=== PATIENT | female | born 1970 | race Caucasian/White ===

== ENCOUNTER 2018-09-18 18:08 | Emergency (ER) | payer MEDICARE ==
[~2018-09-18] VITALS: Ht 167.6 cm; Wt 96.0 kg
--- NOTE | 2018-09-18 18:29 | NUR ---
PT ARRIVED TO ROOM 25 VIA WHEELCHAIR WITH TECH. PT DRESSED IN GOWN AND ATTACHED TO MONITOR. PT C/O FLANK PAIN AND "BLADDER PAIN, IT HURTS MORE WHEN I PEE. IT MAKES ME NAUSEOUS." PT AAO X 4, VSS, NAD, ROOM AIR. RESTING ON GURNEY, CALL LIGHT WITHIN REACH, FALL PRECAUTIONS IN PLACE.
[2018-09-18] MEDS ORDERED: GABA100C PO (18:34)
[2018-09-18] MEDS ORDERED: TRAZ50TA66 PO (18:34)
[2018-09-18] MEDS ORDERED: CARV3.1212 PO (18:34)
[2018-09-18] MEDS ORDERED: LEVO25TA2 PO (18:43)
[2018-09-18] MEDS ORDERED: LISI2.5T PO (18:43)
--- NOTE | 2018-09-18 18:52 | NUR ---
PIV ESTABLISHED BY PUJA BRAGA. PT AMBULATED TO RESTROOM FOR UA WITH STEADY GAIT.
[2018-09-18] MEDS ORDERED: METOCLOPRAMIDE 5 MG/ML, 2ML ONE (18:54)
[2018-09-18] MEDS ORDERED: HYDROmorphone 2 MG/ML, 1ML ONE ×2 (18:54→20:17)
--- NOTE | 2018-09-18 18:54 | NUR ---
PIV PLACED, PT ASKED TO PROVIDE UA AT THIS TIME.
[2018-09-18] MEDS ORDERED: KETOROLAC 30 MG/1 ML ONE (18:55)
--- NOTE | 2018-09-18 18:57 | NUR ---
PT UA SENT TO LAB.
[2018-09-18] MEDS: HYDROmorphone 2 MG/ML, 1ML IVPush PRN ×2 (18:59→20:19)
[2018-09-18] MEDS ORDERED: KETOROLAC 30 MG/1 ML IVPush ONE (19:00)
[2018-09-18] MEDS ORDERED: METOCLOPRAMIDE 5 MG/ML, 2ML IVPush ONE (19:00)
--- NOTE | 2018-09-18 19:01 | NUR ---
PT MEDICATED PER ORDER
--- NOTE | 2018-09-18 19:02 | NUR ---
PT TO CT.
[2018-09-18 19:04] LABS: BASOPHILS # (AUTO) 0.03 x10^3/uL (0-0.1); BASOPHILS % (AUTO) 0 % (0-1); EOSINOPHILS # (AUTO) 0.11 x10^3/uL (0-0.4); EOSINOPHILS % (AUTO) 1 % (1-7); LYMPHOCYTES % (AUTO) 21 % (22-44); MD NO; MEAN CORPUSCULAR HEMOGLOBIN 29.1 pg (27.0-34.8); MEAN CORPUSCULAR HGB CONC 33.3 g/dL (32.4-35.8); MEAN CORPUSCULAR VOLUME 87.2 fL (80-100); MEAN PLATELET VOLUME 10.1 fL (7.4-10.4); MONOCYTES # (AUTO) 0.85 x10^3/uL (0.2-0.8); MONOCYTES % (AUTO) 10 % (2-9); NEUTROPHILS # (AUTO) 5.84 x10^3/uL (1.8-6.8); NEUTROPHILS % (AUTO) 68 % (42-75); PLATELET COUNT 258 x10^3/uL (130-400); RED BLOOD COUNT 5.22 x10^6/uL (3.82-5.3); RED CELL DISTRIBUTION WIDTH 14.8 % (9.6-15.2)
[2018-09-18 19:06] LABS: MICROSCOPIC AUTO
--- NOTE | 2018-09-18 19:09 | NUR ---
PT BACK FROM CT.
[2018-09-18 19:11] LABS: CULTURE INDICATED? YES
[2018-09-18 19:16] LABS: ALANINE AMINOTRANSFERASE 41 U/L (12-78); ALBUMIN 3.7 g/dL (3.4-5.0); ANION GAP 7 mmol/L (5-15); CALCIUM 8.7 mg/dL (8.5-10.1); CHLORIDE 114 mmol/L (98-107); CREATININE 0.79 mg/dL (0.55-1.02)
[2018-09-18 19:19] LABS: ALKALINE PHOSPHATASE 137 U/L (45-117); BILIRUBIN,TOTAL 0.5 mg/dL (0.2-1.0); TOTAL PROTEIN 7.4 g/dL (6.4-8.2)
--- NOTE | 2018-09-18 19:40 | NUR ---
ALL RESULTS BACK AT THIS TIME, CHART UP FOR RECHECK BY .
[2018-09-18] MEDS ORDERED: CEFTRIAXONE PMX 1GM/50ML 50 ML ONE (19:59)
[2018-09-18] MEDS ORDERED: CEFTRIAXONE PMX 1GM/50ML 50 ML IV ONE (20:00)
[2018-09-18 20:03] VITALS: BP 134/66
--- NOTE | 2018-09-18 20:20 | NUR ---
PT MEDICATED PER .
--- NOTE | 2018-09-18 21:05 | NUR ---
Patient/Caregiver given discharge instructions and they have confirmed that they understand the instructions. Patient ambulatory with steady gait.
== END 2018-09-18 21:06 | disposition home or self-care (01) ==
LOC: ED 19:14
DX: N10 Acute pyelonephritis (principal); N39.0 Urinary tract infection, site not specified; Z90.49 Acquired absence of other specified parts of digestive tract; Z90.710 Acquired absence of both cervix and uterus; Z87.891 Personal history of nicotine dependence
CPT/HCPCS: 36415; 74176; 80053; 81001; 85025; 87077; 87086; 87186; 96365; 96375; 96376; 99284; J0696; J1170; J1885; J2765

== ENCOUNTER 2018-10-02 11:40 | Inpatient (IN) | payer MEDICARE, MEDICAID ==
[~2018-10-02] VITALS: Ht 165.1 cm; Wt 99.7 kg
[~2018-10-02 11:40] MED LIST: CARV3.1212 PO; GABA100C PO; LEVO25TA2 PO; LISI2.5T PO; TRAZ50TA66 PO
[2018-10-02] MEDS ORDERED: METOCLOPRAMIDE 5 MG/ML, 2ML ONE (12:22)
[2018-10-02] MEDS ORDERED: HYDROmorphone 1 MG/ML, 1ML VIAL ONE ×2 (12:22→14:06)
[2018-10-02 12:29] LABS: MICROSCOPIC NOT IND
[2018-10-02] MEDS ORDERED: SODIUM CHLORIDE FLUSH 10ML SYR IVF ONE (12:30)
[2018-10-02] MEDS ORDERED: METOCLOPRAMIDE 5 MG/ML, 2ML IVPush ONE (12:30)
--- NOTE | 2018-10-02 12:35 | NUR ---
PT STATES SHE IS IN IMMENSE AMOUNT OF ABD PAIN, SHE HAS BEEN N/V/D SINCE WED, LAST EPISODE WAS AT 0200 TODAY. HAD A UTI 2 WKS AGO. BLD AND URINE SAMPLES SENT TO LAB, BLANKETS AND SHEET FOR PILLOW GIVEN. IV ESTABLISHED.
[2018-10-02 12:37] LABS: ALANINE AMINOTRANSFERASE 39 U/L (12-78); ALBUMIN 3.7 g/dL (3.4-5.0); ANION GAP 7 mmol/L (5-15); CALCIUM 8.8 mg/dL (8.5-10.1); CHLORIDE 110 mmol/L (98-107)
[2018-10-02 12:40] LABS: ALKALINE PHOSPHATASE 151 U/L (45-117); BILIRUBIN,TOTAL 1.1 mg/dL (0.2-1.0); CREATININE 0.74 mg/dL (0.55-1.02); TOTAL PROTEIN 7.4 g/dL (6.4-8.2)
[2018-10-02 12:43] LABS: BASOPHILS # (AUTO) 0.02 x10^3/uL (0-0.1); BASOPHILS % (AUTO) 0 % (0-1); EOSINOPHILS # (AUTO) 0.08 x10^3/uL (0-0.4); EOSINOPHILS % (AUTO) 1 % (1-7); LYMPHOCYTES # (AUTO) 1.35 x10^3/uL (1-3.4); LYMPHOCYTES % (AUTO) 13 % (22-44); MD NO; MEAN CORPUSCULAR HEMOGLOBIN 28.3 pg (27.0-34.8); MEAN CORPUSCULAR HGB CONC 32.6 g/dL (32.4-35.8); MEAN CORPUSCULAR VOLUME 86.7 fL (80-100); MEAN PLATELET VOLUME 10.3 fL (7.4-10.4); MONOCYTES # (AUTO) 0.71 x10^3/uL (0.2-0.8); MONOCYTES % (AUTO) 7 % (2-9); NEUTROPHILS % (AUTO) 79 % (42-75); PLATELET COUNT 212 x10^3/uL (130-400); RED BLOOD COUNT 5.13 x10^6/uL (3.82-5.3); RED CELL DISTRIBUTION WIDTH 14.4 % (9.6-15.2)
[2018-10-02] MEDS: HYDROmorphone 2 MG/ML, 1ML IVPush PRN ×4 (12:44→23:02)
[2018-10-02 12:55] LABS: CULTURE INDICATED? NO
--- NOTE | 2018-10-02 13:57 | NUR ---
PT IN CT SCAN
[2018-10-02] MEDS ORDERED: OMNIPAQUE 350 MG/ML, 100ML BOTTLE ONE (14:04)
--- NOTE | 2018-10-02 14:04 | NUR ---
PT RETURNED TO ROOM, 2 WARM BLANKETS GIVEN TO PT. CALL LIGHT WITHIN REACH. PT ASKING FOR PAIN MEDS.
--- NOTE | 2018-10-02 14:14 | NUR ---
PT GIVEN RX IV PAIN MEDS. PT STATES HER PAIN IS A 9/10. PT IS CHATTING ON PHONE AND MAKING JOKES WITH STAFF.
--- NOTE | 2018-10-02 14:33 | NUR ---
PT SLEEPING. SNORING SOFTLY.
--- NOTE | 2018-10-02 14:47 | NUR ---
IN ROOM ULTRA SOUND FINISHED. PT COVERED IN 3 BLANKETS. CALL LIGHT WITH IN REACH, TV ON. VSS. NO OTHER CONCERNS AT THIS TIME.
--- NOTE | 2018-10-02 14:59 | NUR ---
PT UP TO BATHROOM
--- NOTE | 2018-10-02 14:59 | NUR ---
PT STATES SHE HAS NO POOP SHE HASN'T EATEN SINCE SAT AT 1999.
[2018-10-02] MEDS ORDERED: CEFTRIAXONE 1,000 MG in SODIUM CHLORIDE 0.9% 50 ML IVPB ONE (15:00)
[2018-10-02] MEDS ORDERED: METRONIDAZOLE PMX 500MG/100ML 100 ML IVPB ONE (15:00)
[2018-10-02] MEDS ORDERED: METRONIDAZOLE PMX 500MG/100ML 100 ML ONE (15:01)
[2018-10-02] MEDS ORDERED: CEFTRIAXONE PMX 1GM/50ML 50 ML ONE (15:01)
[2018-10-02] MEDS: CEFTRIAXONE PMX 1GM/50ML 50 ML IVPB ONE ×2 (15:22→15:30)
[2018-10-02] MEDS ORDERED: LACTATED RINGERS 1,000 ML IV ONE (16:00)
[2018-10-02] MEDS ORDERED: GUAIFENESIN/DM 200-20MG, 10ML UDC PO PRN (16:00)
[2018-10-02] MEDS ORDERED: ENALAPRILAT 1.25 MG/ML, 2ML IVPush PRN (16:00)
[2018-10-02] MEDS ORDERED: ZOLPIDEM 5MG TABLET PO PRN (16:00)
--- NOTE | 2018-10-02 16:21 | NUR ---
PT GIVEN FOOD TRAY
--- NOTE | 2018-10-02 17:25 | NUR ---
REPORT GIVEN TO MARIA LUZ MCCARTHY. GOING TO ROOM 378.
--- NOTE | 2018-10-02 17:30 | NUR ---
VITALS ENTERED. PT HAD EYES CLOSED.
[2018-10-02] MEDS: ONDANSETRON ODT 4 MG PO PRN (19:27)
[2018-10-02] MEDS: CIPROFLOXACIN/PMX 400MG/200ML 200 ML IV SCH (19:28)
[2018-10-02 19:39] VITALS: BP 137/85
[2018-10-02] MEDS: TRAZODONE 50MG TABLET PO SCH (21:19)
[2018-10-02] MEDS: METRONIDAZOLE PMX 500MG/100ML 100 ML IV SCH (23:02)
[2018-10-02] MEDS: ACETAMINOPHEN 325 MG TABLET PO PRN (23:02)
[2018-10-03 01:36] VITALS: BP 108/73
[2018-10-03] MEDS: HYDROmorphone 2 MG/ML, 1ML IVPush PRN ×5 (04:09→23:10)
[2018-10-03] MEDS: ACETAMINOPHEN 325 MG TABLET PO PRN ×2 (04:09→16:26)
[2018-10-03 04:32] LABS: BASOPHILS # (AUTO) 0.02 x10^3/uL (0-0.1); BASOPHILS % (AUTO) 0 % (0-1); EOSINOPHILS # (AUTO) 0.06 x10^3/uL (0-0.4); EOSINOPHILS % (AUTO) 1 % (1-7); LYMPHOCYTES # (AUTO) 1.75 x10^3/uL (1-3.4); LYMPHOCYTES % (AUTO) 21 % (22-44); MD NO; MEAN CORPUSCULAR HEMOGLOBIN 29.2 pg (27.0-34.8); MEAN CORPUSCULAR HGB CONC 33.4 g/dL (32.4-35.8); MEAN CORPUSCULAR VOLUME 87.4 fL (80-100); MEAN PLATELET VOLUME 10.7 fL (7.4-10.4); MONOCYTES # (AUTO) 1.11 x10^3/uL (0.2-0.8); MONOCYTES % (AUTO) 13 % (2-9); NEUTROPHILS % (AUTO) 65 % (42-75); PLATELET COUNT 192 x10^3/uL (130-400); RED BLOOD COUNT 4.58 x10^6/uL (3.82-5.3); RED CELL DISTRIBUTION WIDTH 14.3 % (9.6-15.2)
[2018-10-03 04:47] LABS: ANION GAP 9 mmol/L (5-15); CALCIUM 8.1 mg/dL (8.5-10.1); CHLORIDE 109 mmol/L (98-107); CREATININE 0.74 mg/dL (0.55-1.02)
[2018-10-03] MEDS: LEVOTHYROXINE 25 MCG TABLET PO SCH (06:03)
[2018-10-03] MEDS: METRONIDAZOLE PMX 500MG/100ML 100 ML IV SCH ×3 (07:29→23:10)
[2018-10-03 08:20] VITALS: BP 138/81
[2018-10-03] MEDS: CIPROFLOXACIN/PMX 400MG/200ML 200 ML IV SCH ×2 (08:30→20:32)
[2018-10-03] MEDS: GABAPENTIN 100 MG CAPSULE PO SCH (09:02)
[2018-10-03] MEDS: CARVEDILOL 3.125 MG TABLET PO SCH (09:03)
[2018-10-03] MEDS: LISINOPRIL 5 MG TABLET PO SCH (09:03)
[2018-10-03] MEDS ORDERED: ONDANSETRON 2MG/ML, 2ML ONE (10:26)
[2018-10-03] MEDS ORDERED: ASA/APAP/ CAFFEINE TABLET ONE (10:26)
[2018-10-03] MEDS ORDERED: ASA/APAP/ CAFFEINE TABLET PO ONE (10:30)
[2018-10-03] MEDS: ONDANSETRON 2MG/ML, 2ML IVPush PRN ×2 (10:34→20:32)
[2018-10-03] MEDS: DOCUSATE 100 MG CAPSULE PO PRN (13:14)
[2018-10-03] MEDS: IBUPROFEN 600 MG TABLET PO PRN ×2 (13:50→20:42)
[2018-10-03 14:35] VITALS: BP 116/78
[2018-10-03] MEDS ORDERED: PROMETHAZINE 25 MG/ML, 1ML IM PRN (15:30)
[2018-10-03] MEDS: CHOLECALCIFEROL 400 UNITS TABLET PO SCH (16:26)
[2018-10-03] MEDS: ASCORBIC ACID 500 MG TABLET PO SCH (16:26)
[2018-10-03 19:55] VITALS: BP 128/82
[2018-10-03] MEDS: CALCIUM CARBONATE 500 MG TAB.CHEW PO SCH (20:31)
[2018-10-03] MEDS: TRAZODONE 50MG TABLET PO SCH (20:32)
[2018-10-04] MEDS: HYDROmorphone 2 MG/ML, 1ML IVPush PRN ×4 (02:21→11:31)
[2018-10-04 02:54] VITALS: BP 121/78
[2018-10-04 05:32] LABS: BASOPHILS # (AUTO) 0.02 x10^3/uL (0-0.1); BASOPHILS % (AUTO) 0 % (0-1); EOSINOPHILS # (AUTO) 0.19 x10^3/uL (0-0.4); EOSINOPHILS % (AUTO) 3 % (1-7); LYMPHOCYTES # (AUTO) 1.37 x10^3/uL (1-3.4); LYMPHOCYTES % (AUTO) 24 % (22-44); MD NO; MEAN CORPUSCULAR HEMOGLOBIN 28.9 pg (27.0-34.8); MEAN CORPUSCULAR HGB CONC 32.9 g/dL (32.4-35.8); MEAN CORPUSCULAR VOLUME 87.6 fL (80-100); MONOCYTES # (AUTO) 0.66 x10^3/uL (0.2-0.8); MONOCYTES % (AUTO) 12 % (2-9); NEUTROPHILS # (AUTO) 3.55 x10^3/uL (1.8-6.8); NEUTROPHILS % (AUTO) 61 % (42-75); PLATELET COUNT 187 x10^3/uL (130-400); RED BLOOD COUNT 4.52 x10^6/uL (3.82-5.3); RED CELL DISTRIBUTION WIDTH 14.3 % (9.6-15.2)
[2018-10-04 05:39] LABS: ANION GAP 5 mmol/L (5-15); CALCIUM 8.4 mg/dL (8.5-10.1); CHLORIDE 111 mmol/L (98-107)
[2018-10-04 05:41] LABS: CREATININE 0.67 mg/dL (0.55-1.02)
[2018-10-04] MEDS: ONDANSETRON ODT 4 MG PO PRN (05:43)
[2018-10-04] MEDS: LEVOTHYROXINE 25 MCG TABLET PO SCH (05:43)
[2018-10-04] MEDS: ONDANSETRON 2MG/ML, 2ML IVPush PRN (05:51)
[2018-10-04 08:27] VITALS: BP 106/75
[2018-10-04] MEDS: METRONIDAZOLE PMX 500MG/100ML 100 ML IV SCH ×2 (09:28→11:31)
[2018-10-04] MEDS: LISINOPRIL 5 MG TABLET PO SCH (09:29)
[2018-10-04] MEDS: CALCIUM CARBONATE 500 MG TAB.CHEW PO SCH ×2 (09:29→20:01)
[2018-10-04] MEDS: ASA/APAP/ CAFFEINE TABLET PO PRN (09:29)
[2018-10-04] MEDS ORDERED: MAGNESIUM CITRATE 300ML ORAL SOL PO PRN (09:30)
[2018-10-04] MEDS: GABAPENTIN 100 MG CAPSULE PO SCH (09:30)
[2018-10-04] MEDS: MULTIVITS,STRESS FORMULA 1 TABLET PO SCH (09:30)
[2018-10-04] MEDS: ASCORBIC ACID 500 MG TABLET PO SCH ×2 (09:30→17:00)
[2018-10-04] MEDS: CARVEDILOL 3.125 MG TABLET PO SCH (09:31)
[2018-10-04] MEDS: CIPROFLOXACIN/PMX 400MG/200ML 200 ML IV SCH (12:40)
[2018-10-04] MEDS ORDERED: OXYcodone/APAP 5/325MG TABLET PO PRN (14:30)
[2018-10-04 14:55] VITALS: BP 115/77
[2018-10-04] MEDS: CHOLECALCIFEROL 400 UNITS TABLET PO SCH (17:00)
[2018-10-04] MEDS: metroNIDAZOLE 500 MG TABLET PO SCH ×2 (17:00→20:01)
[2018-10-04] MEDS ORDERED: METR500T PO (18:53)
[2018-10-04] MEDS ORDERED: CIPR500T3 PO (18:53)
[2018-10-04] MEDS: CIPROFLOXACIN 500 MG TABLET PO SCH (20:01)
[2018-10-04] MEDS: HYDROcodone/APAP 5/325 TABLET PO PRN (20:01)
[2018-10-04] MEDS: TRAZODONE 50MG TABLET PO SCH (20:01)
[2018-10-04 20:36] VITALS: BP 142/86
[2018-10-05] MEDS: ASA/APAP/ CAFFEINE TABLET PO PRN (00:39)
[2018-10-05] MEDS: HYDROcodone/APAP 5/325 TABLET PO PRN ×2 (02:49→09:34)
[2018-10-05 02:59] VITALS: BP 117/75
[2018-10-05 05:46] LABS: BASOPHILS # (AUTO) 0.02 x10^3/uL (0-0.1); BASOPHILS % (AUTO) 0 % (0-1); EOSINOPHILS % (AUTO) 3 % (1-7); LYMPHOCYTES # (AUTO) 1.77 x10^3/uL (1-3.4); LYMPHOCYTES % (AUTO) 29 % (22-44); MD NO; MEAN CORPUSCULAR HEMOGLOBIN 29.1 pg (27.0-34.8); MEAN CORPUSCULAR HGB CONC 32.7 g/dL (32.4-35.8); MEAN CORPUSCULAR VOLUME 88.9 fL (80-100); MEAN PLATELET VOLUME 10.5 fL (7.4-10.4); MONOCYTES # (AUTO) 0.63 x10^3/uL (0.2-0.8); MONOCYTES % (AUTO) 10 % (2-9); NEUTROPHILS % (AUTO) 57 % (42-75); PLATELET COUNT 210 x10^3/uL (130-400); RED BLOOD COUNT 4.69 x10^6/uL (3.82-5.3); RED CELL DISTRIBUTION WIDTH 14.6 % (9.6-15.2)
[2018-10-05] MEDS: DOCUSATE 100 MG CAPSULE PO PRN (05:57)
[2018-10-05] MEDS: LEVOTHYROXINE 25 MCG TABLET PO SCH (05:57)
[2018-10-05 06:00] LABS: CHLORIDE 109 mmol/L (98-107)
[2018-10-05 06:17] LABS: ANION GAP 7 mmol/L (5-15); CALCIUM 8.3 mg/dL (8.5-10.1); CREATININE 0.68 mg/dL (0.55-1.02)
[2018-10-05 08:59] VITALS: BP 138/81
[2018-10-05] MEDS: LISINOPRIL 5 MG TABLET PO SCH (09:00)
[2018-10-05] MEDS: CIPROFLOXACIN 500 MG TABLET PO SCH (09:25)
[2018-10-05] MEDS: metroNIDAZOLE 500 MG TABLET PO SCH (09:25)
[2018-10-05] MEDS: GABAPENTIN 100 MG CAPSULE PO SCH (09:25)
[2018-10-05] MEDS: CALCIUM CARBONATE 500 MG TAB.CHEW PO SCH (09:25)
[2018-10-05] MEDS: CARVEDILOL 3.125 MG TABLET PO SCH (09:25)
[2018-10-05] MEDS: MULTIVITS,STRESS FORMULA 1 TABLET PO SCH (09:26)
[2018-10-05] MEDS: ASCORBIC ACID 500 MG TABLET PO SCH (09:26)
[2018-10-05 13:11] VITALS: BP 116/74
== END 2018-10-05 14:12 | disposition home or self-care (01) | DRG 392 ==
LOC: ED 13:34 → EDIP 15:15 → 3NE 16:43 → DCLOUNGE 10-05 14:10
PROVIDERS: ADMIT Internal Medicine; ATTEND Internal Medicine
DX: K57.32 Diverticulitis of large intestine without perforation or abscess without bleeding (principal); E66.9 Obesity, unspecified; Z68.36 Body mass index [BMI] 36.0-36.9, adult; Z87.440 Personal history of urinary (tract) infections; E03.9 Hypothyroidism, unspecified; E83.51 Hypocalcemia; E11.40 Type 2 diabetes mellitus with diabetic neuropathy, unspecified; G89.29 Other chronic pain; I11.0 Hypertensive heart disease with heart failure; I50.9 Heart failure, unspecified; K59.00 Constipation, unspecified; Z87.891 Personal history of nicotine dependence; Z90.710 Acquired absence of both cervix and uterus
CPT/HCPCS: 36415; 74177; 76770; 80048; 80053; 80069; 81003; 83690; 83735; 84443; 85025; 96365; 96375; 96376; G0378; J0696; J0744; J1170; J2405; Q0162; Q9967; J2765; J7120

== ENCOUNTER 2018-10-19 17:14 | Emergency (ER) | payer MEDICARE, MEDICAID ==
[~2018-10-19] VITALS: Ht 165.1 cm; Wt 100.0 kg
[2018-10-19 22:20] VITALS: BP 141/68
== END 2018-10-19 23:13 | disposition home or self-care (01) ==
LOC: ED 22:54
DX: R10.32 Left lower quadrant pain (principal); R10.33 Periumbilical pain; R10.31 Right lower quadrant pain; Z90.49 Acquired absence of other specified parts of digestive tract; Z90.710 Acquired absence of both cervix and uterus
CPT/HCPCS: 36415; 74177; 80053; 81003; 83690; 84703; 85025; 96374; 99284; J2405; Q9967